=== PATIENT | male | born 1980 | race African-American/Black ===

== ENCOUNTER 2016-08-29 12:31 | Emergency (ER) | payer OTHER ==
[~2016-08-29 12:31] MED LIST: ATOR10TA60 PO; BENZ100C15 PO; CHLO100T6 PO; DIVA250T6 PO; DIVA500T9 PO; FLUT10SP NS; FLUT1DIS3 IH; HYDR-2868 PO; METF500T4 PO; RANI150C PO; RISP2TAB33 PO; RISP37.5 IM; TRAZ100T12 PO; VALS1TAB25 PO; [UNRECOGNIZED DRUG - OTHER]
[2016-08-29 12:34] VITALS: BP 125/60
--- NOTE | 2016-08-29 12:54 | PHYS DOC ---
Past Medical History Past Medical History: Asthma, COPD, Depression, Diabetes-Type II, GERD, Hypertension, Schizophrenia, Other Additional Past Medical Histor: MR, PSYCHOSIS, INSOMNIA Past Surgical History: Other Additional Past Surgical Histo: tumor removal to back of head Alcohol Use: None Drug Use: None Adult General Chief Complaint Chief Complaint: ABDOMINAL PAIN HPI HPI Patient is a 35 year old male who presents with caregiver from adult daycare for evaluation of abdominal pain. He states he had gradual onset diffuse abdominal pain throughout today. His abdominal pain has now resolved. He is hungry and would like to try to eat. He denies nausea, vomiting, constipation, diarrhea, fever or chills, dysuria, hematuria, back pain, chest pain, dyspnea, cough. Review of Systems Review of Systems Constitutional: Denies fever or chills [] Eyes: Denies change in visual acuity, redness, or eye pain [] HENT: Denies nasal congestion or sore throat [] Respiratory: Denies cough or shortness of breath [] Cardiovascular: No additional information not addressed in HPI [] GI: Denies nausea, vomiting, bloody stools or diarrhea [] : Denies dysuria or hematuria [] Musculoskeletal: Denies back pain or joint pain [] Integument: Denies rash or skin lesions [] Neurologic: Denies headache, focal weakness or sensory changes [] Endocrine: Denies polyuria or polydipsia [] Allergies Allergies Allergies Coded Allergies Type Severity Reaction Last Updated Verified No Known Drug Allergies 01/28/14 No Physical Exam Physical Exam Constitutional: Well developed, well nourished, no acute distress, non-toxic appearance. [] HENT: Normocephalic, atraumatic, bilateral external ears normal, oropharynx moist, no oral exudates, nose normal. [] Eyes: PERRLA, EOMI. [] Neck: Normal range of motion, supple. [] Cardiovascular:Heart rate regular rhythm [] Lungs & Thorax: Bilateral breath sounds clear to auscultation [] Abdomen: Bowel sounds normal, soft, no tenderness. [] Skin: Warm, dry, no erythema, no rash. [] Back: No tenderness, no CVA tenderness. [] Extremities: No tenderness, ROM intact, no edema. [] Neurologic: Alert and oriented X 3, normal motor function, normal sensory function, no focal deficits noted. [] Psychologic: Affect normal, judgement normal, mood normal. [] Current Patient Data Vital Signs Vital Signs Date Time Temp Pulse Resp B/P (MAP) Pulse Ox O2 Delivery O2 Flow Rate FiO2 08/29/16 12:34 97.7 68 16 125/60 (81) 100 Room Air 97.7 Course & Med Decision Making Course & Med Decision Making He tolerated oral intake and continues to feel well. He will be discharged to follow-up with his primary care doctor. Return precautions given. He and general activities therapist understand and agree with plan. Dragon Disclaimer Dragon Disclaimer This electronic medical record was generated, in whole or in part, using a voice recognition dictation system. Departure Departure Impression: Primary Impression: Abdominal pain Disposition: HOME, SELF-CARE Condition: STABLE Referrals: JYOTSNA STEWART (PCP) Patient Instructions: Abdominal Pain, [id number] Additional Instructions: Follow-up with your primary care doctor. Return for any concerns. Problem Qualifiers Primary Impression: Abdominal pain Abdominal location: generalized Qualified Codes: R10.84 - Generalized abdominal pain Myron YOO MD Aug 29, 2016 12:54
== END 2016-08-29 13:50 | disposition home or self-care (01) ==
LOC: ER 12:31
DX: R10.84 Generalized abdominal pain (principal); E11.9 Type 2 diabetes mellitus without complications; F20.9 Schizophrenia, unspecified; I10 Essential (primary) hypertension; J44.9 Chronic obstructive pulmonary disease, unspecified; K21.9 Gastro-esophageal reflux disease without esophagitis; G47.00 Insomnia, unspecified
CPT/HCPCS: 99283

== ENCOUNTER 2017-03-09 23:35 | Emergency (ER) | payer OTHER ==
[2017-03-10 00:01] LABS: POC GLUCOSE 101 mg/dL (70-99)
[2017-03-10 00:13] LABS: ADD MAN DIFF? NO
[2017-03-10 00:18] LABS: BASO % 1 % (0-3); EOS % 5 % (0-3); HEMATOCRIT 37.6 % (39.0-53.0); HEMOGLOBIN 12.5 g/dL (13.0-17.5); LYMPH % 35 % (24-48); MEAN CORPUSCULAR HEMOGLOBIN 29 pg (25-35); MEAN CORPUSCULAR HGB CONC 33 g/dL (31-37); MEAN CORPUSCULAR VOLUME 88 fL (79-100); MONO % 7 % (0-9); NEUT % 52 % (31-73); PLATELET COUNT 265 x10^3/uL (140-400); RED BLOOD COUNT 4.29 x10^6/uL (4.30-5.70); WHITE BLOOD COUNT 5.7 x10^3/uL (4.0-11.0)
[2017-03-10 00:29] LABS: ANION GAP 7 (6-14); BLOOD UREA NITROGEN 18 mg/dL (8-26); CALCIUM 8.9 mg/dL (8.5-10.1); CARBON DIOXIDE 31 mmol/L (21-32); CHLORIDE 100 mmol/L (98-107); CREATININE 1.1 mg/dL (0.7-1.3); GFR 92.2; POTASSIUM 4.3 mmol/L (3.5-5.1); SODIUM 138 mmol/L (136-145)
[2017-03-10 00:39] LABS: GLUCOSE 110 mg/dL (70-99)
== END 2017-03-10 01:22 | disposition home or self-care (01) ==
LOC: ER 23:35
DX: F09 Unspecified mental disorder due to known physiological condition (principal); J44.9 Chronic obstructive pulmonary disease, unspecified; F32.9 Major depressive disorder, single episode, unspecified; E11.9 Type 2 diabetes mellitus without complications; K21.9 Gastro-esophageal reflux disease without esophagitis; F20.9 Schizophrenia, unspecified; I10 Essential (primary) hypertension; G47.00 Insomnia, unspecified
CPT/HCPCS: 36415; 70450; 80048; 82962; 85025; 99285-25